=== PATIENT | female | born 2000 | race Caucasian/White ===

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

== ENCOUNTER 2019-05-10 04:08 | Emergency (ER) | payer OTHER ==
[~2019-05-10] VITALS: Ht 160 cm; Wt 45.4 kg
[2019-05-10] MEDS ORDERED: LEVOTHYROXINE25 MCG (04:27)
[2019-05-10] MEDS ORDERED: PEPCID AC20 MG PO (08:18)
[2019-05-10] MEDS ORDERED: ZITHROMAX500 MG PO (08:18)
[2019-05-10] MEDS ORDERED: DICLOFENAC SODI50 MG PO (08:18)
[2019-05-10] MEDS ORDERED: FLONASE ALLERG9.9 ML NASAL (08:18)
== END 2019-05-10 09:00 | disposition home or self-care (01) ==
LOC: ER 04:08
DX: J01.40 Acute pansinusitis, unspecified (principal); K29.70 Gastritis, unspecified, without bleeding

== ENCOUNTER 2019-08-16 10:59 | Emergency (ER) | payer OTHER ==
[~2019-08-16] VITALS: Ht 162.6 cm; Wt 38.6 kg
[~2019-08-16 10:59] MED LIST changes: +DICLOFENAC SODI50 MG PO; +FLONASE ALLERG9.9 ML NASAL; +LEVOTHYROXINE25 MCG; +PEPCID AC20 MG PO; +ZITHROMAX500 MG PO
== END 2019-08-16 18:45 | disposition home or self-care (01) ==
LOC: EMR PED 10:59 → ER 10:59
DX: R10.2 Pelvic and perineal pain (principal); N94.6 Dysmenorrhea, unspecified

== ENCOUNTER 2019-08-27 07:51 | Emergency (ER) | payer OTHER ==
[~2019-08-27] VITALS: Ht 162.6 cm; Wt 38.6 kg
== END 2019-08-27 10:40 | disposition home or self-care (01) ==
LOC: ER 07:51
DX: B34.9 Viral infection, unspecified (principal); D64.9 Anemia, unspecified

== ENCOUNTER 2019-12-05 06:23 | Emergency (ER) | payer OTHER ==
[~2019-12-05] VITALS: Ht 162.6 cm; Wt 40.4 kg
[2019-12-05] MEDS ORDERED: ATIVAN0.5 M1 (06:38)
== END 2019-12-05 09:47 | disposition home or self-care (01) ==
LOC: ER 06:23
DX: K29.60 Other gastritis without bleeding (principal)

== ENCOUNTER 2020-12-12 09:59 | Emergency (ER) | payer OTHER ==
[~2020-12-12] VITALS: Ht 162.6 cm; Wt 40.8 kg
[~2020-12-12 09:59] MED LIST changes: +ATIVAN0.5 M1
[2020-12-12] MEDS ORDERED: VENTOLIN HFA18 GM IH (15:06)
[2020-12-12] MEDS ORDERED: BUDESONIDE0.5 MG/21 IH (15:06)
[2020-12-12] MEDS ORDERED: MUCINEX DM ER1 EAC1 PO (15:06)
[2020-12-12] MEDS ORDERED: IPRAT-ALBUT 0.5-3 ML IH (15:06)
== END 2020-12-12 15:30 ==
LOC: ER 09:59
DX: J45.909 Unspecified asthma, uncomplicated (principal); J06.9 Acute upper respiratory infection, unspecified; Z20.822 Contact with and (suspected) exposure to COVID-19

== ENCOUNTER 2021-04-03 09:30 | Emergency (ER) | payer OTHER ==
[~2021-04-03] VITALS: Ht 162.6 cm; Wt 40.8 kg
[~2021-04-03 09:30] MED LIST changes: +BUDESONIDE0.5 MG/21 IH; +IPRAT-ALBUT 0.5-3 ML IH; +MUCINEX DM ER1 EAC1 PO; +VENTOLIN HFA18 GM IH
[2021-04-03] MEDS ORDERED: PROTONIX40 MG PO (11:56)
== END 2021-04-03 12:05 | disposition home or self-care (01) ==
LOC: ER 09:30
DX: K29.70 Gastritis, unspecified, without bleeding (principal)

== ENCOUNTER 2021-05-15 09:01 | Emergency (ER) | payer OTHER ==
[~2021-05-15] VITALS: Ht 162.6 cm; Wt 40.8 kg
[~2021-05-15 09:01] MED LIST changes: +PROTONIX40 MG PO
== END 2021-05-15 12:22 | disposition home or self-care (01) ==
LOC: ER 09:01
DX: M25.511 Pain in right shoulder (principal)